=== PATIENT | female | born 1995 | race Caucasian/White ===

== ENCOUNTER 2016-08-14 02:30 | Emergency (ER) | payer OTHER ==
[~2016-08-14] VITALS: Ht 165.1 cm; Wt 48.0 kg
[2016-08-14 02:54] VITALS: TEMP 36.6; Ht 165.1 cm; Wt 48.0 kg
--- NOTE | 2016-08-14 02:58 | EMERGENCY ROOM VISIT NOTE ---
History Report prepared by Char: Giovanni Fatima Under the Supervision of: Dr. Vy Tavera M.D. First contact with patient: 02:33 Chief Complaint: ALCOHOL OVERDOSE Stated Complaint: ALCOHOL OVERDOSE History of Present Illness The patient is a 20 year old female who presents to the Emergency Room with complaints of constant alcohol intoxication occurring prior to arrival. Per the nursing staff the patient was drinking with friends downtown, and they left her , and then they came back she was found unresponsive on [facility]. She blew a 0.257 on the scene. The patient states that she has a history of cancer when she was 9. History is limited secondary to alcohol intoxication. Source of History: patient, nursing staff Onset: prior to arrival Position: other (global) Quality: other (alcohol intoxication) Timing: constant Review of Systems See HPI for pertinent positives & negatives. A total of 10 systems reviewed and were otherwise negative. Past Medical & Surgical Medical Problems: (1) Cancer Family History Limited due to intoxication Social History Marital Status: in relationship Occupation Status: other (recently graduated from college) Social History: Limited due to intoxication Current/Historical Medications No Active Prescriptions or Reported Meds Allergies Coded Allergies: No Known Allergies (Unverified , 08/14/16) Physical Exam Vital Signs Date Time Temp Pulse Resp B/P Pulse Ox O2 Delivery O2 Flow Rate FiO2 08/14/16 06:14 94 20 132/76 96 Room Air 08/14/16 05:32 99 20 125/90 96 Room Air 08/14/16 03:22 101 20 127/98 98 Room Air 08/14/16 02:54 36.6 120 18 124/73 100 Room Air 08/14/16 02:42 119 Physical Exam Vital signs reviewed. General: Awake. Odor of EtOH in the breath, disheveled 20-year-old female. No signs of trauma. HEENT: Mild scleral injection bilaterally, PERRLA, neck supple, dry mucous membranes. Cardiovascular: Regular rate and rhythm, no extra sounds. Pulmonary: Clear to auscultation bilaterally, normal work of breathing. Abdomen: Soft, nontender, nondistended, positive bowel sounds. Musculoskeletal: Upper and lower extremities atraumatic, no peripheral edema Skin: Warm, dry, no rash. Atraumatic. Neurologic: Patient is awake, verbal but anxious and answering questions erratically. Medical Decision & Procedures Laboratory Results Test 08/14/16 02:39 08/14/16 03:40 Ethyl Alcohol mg/dL 347.0 mg/dl (0-3) Laboratory results per my review. ED Course 0233: Past medical records reviewed. The patient was evaluated in room A11. A complete history and physical examination was performed. 0341: I had a discussion with the patient's mother, and she states that the patient has anxiety and depression, and she is concerned that there is substance ingestion along with the alcohol. 0611: I reevaluated the patient, and her boyfriend was there with her, and he was sober enough to give her a ride home. I discussed findings with them. They verbalized agreement of the treatment plan. She was discharged home. Medical Decision The differential diagnosis of the patient's presentation includes alcohol ingestion, illicit drug use, trauma, and dehydration. This patient was evaluated and appeared to be in no significant distress. Patient was placed on the rn security, aspiration precautions were maintained. Laboratory work indicates a blood alcohol of 347. The patient was observed until she reached a more sober state. Her boyfriend arrived in the emergency department 4 hours later. The patient was verbal and ambulatory without difficulty. I did have a discussion with the patient regarding her alcohol tolerance. She was advised to avoid excessive alcohol intake. She will follow-up with her family physician as needed. She will return to the ER for worsening of symptoms or any medical concerns. Impression Primary Impression: Alcoholic intoxication Scribe Attestation The scribe's documentation has been prepared under my direction and personally reviewed by me in its entirety. I confirm that the note above accurately reflects all work, treatment, procedures, and medical decision making performed by me. Departure Information Dispostion Home / Self-Care Prescriptions No Active Prescriptions or Reported Meds Referrals No Doctor, Assigned (PCP) Forms HOME CARE DOCUMENTATION FORM, IMPORTANT VISIT INFORMATION Patient Instructions My [facility] Additional Instructions Diagnosis: Alcohol intoxication Keep well-hydrated. Tylenol every 6 hours as needed for pain (Maximum 3000 mg Tylenol in 24 hr period). Follow up with family doctor as needed. Return to the emergency department for worsening of symptoms or any medical concerns. Problem Qualifiers Primary Impression: Alcoholic intoxication Complication of substance-induced condition: with unspecified complication Qualified Codes: F10.929 - Alcohol use, unspecified with intoxication, unspecified
[2016-08-14 06:14] VITALS: BP 132/76; PULSE 94; O2SAT 96
== END 2016-08-14 06:24 | disposition home or self-care (01) ==
LOC: EDBD 02:30 → C.EDA 02:32
DX: F10.929 Alcohol use, unspecified with intoxication, unspecified (principal); Z85.9 Personal history of malignant neoplasm, unspecified; F41.9 Anxiety disorder, unspecified; F32.9 Major depressive disorder, single episode, unspecified